=== PATIENT | male | born 1965 ===

== ENCOUNTER → 2018-02-20 10:06 | Day surgery (SDC) | payer BC, OTHER ==
[~2018-02-20 10:06] MED LIST: Buffered Lidocaine 0.9% SYRIN* 5 ML/SYR SYRINGE INTRADERM ONE; Bupivacaine 0.25% SDV PF* 10 ML VIAL INJ ONE; Lactated Ringers 1000 ML Bag* 1,000 ML IV SCH; Lidocaine 2% PF * 5 ML VIAL ONE; Midazolam* 1 MG/ML 2 ML VIAL (2 MG) ONE; Naloxone* 0.4 MG/ML 1 ML VIAL IV PRN; fentaNYL* 50 MCG/ML 2 ML VIAL (100 MCG VIAL) ONE
[2018-02-20 12:49] VITALS: BP 144/95
--- NOTE | 2018-02-20 18:49 | OP ---
DATE OF OPERATION: 02/20/18 - [facility] DATE OF : 69. SURGEON: Chris Hardin MD RECEIVABLE MANAGER: LEE Vang ANESTHESIOLOGIST: Dr. Correa. ANESTHESIA: Local MAC. PRE-OP DIAGNOSIS: Right carpal tunnel syndrome. POST-OP DIAGNOSIS: Right carpal tunnel syndrome. OPERATIVE PROCEDURE: Right open carpal tunnel release. INDICATIONS: Chao has had progressive carpal tunnel. We talked about risks and benefits. He wanted to proceed. ESTIMATED BLOOD LOSS: 2 mL. COMPLICATIONS: None. FINDINGS: See above and below. DESCRIPTION OF PROCEDURE: Chao was seen in the preoperative holding area. The correct side, site, and procedure were identified. We came back to the operating room where he got some anesthesia and then I infiltrated the operative area with 0.25% plain Marcaine. The arm was then prepped and draped in the usual fashion and a time-out was performed. The arm was exsanguinated with the Esmarch and the tourniquet inflated to 250 mmHg. We made a longitudinal 3 cm incision in the proximal palm in the typical location for an open carpal tunnel release. Dissection was carried down through the subcutaneous tissue and palmar fascia. The transverse carpal ligament was then released off the radial aspect of the hook of the hamate. The release was completed distally and then proximally I came and released the subcutaneous tissue and palmar fascia and this was retracted out of the way and then the remainder of the transverse carpal ligament and the distal antebrachial fascia was released with the tenotomy scissors under direct visualization. Once everything was looking good, I irrigated out the wound. The skin was closed with 4-0 nylon suture. Soft dressings were applied. He was then taken to the recovery room in stable condition. [id number] #: [id number] MTDD
== END | disposition home or self-care (01) ==
LOC: OR 10:06
PROVIDERS: ATTEND Orthopaedic Surgery Hand Surgery
DX: G56.01 Carpal tunnel syndrome, right upper limb (principal); Z68.30 Body mass index [BMI] 30.0-30.9, adult
CPT/HCPCS: J2250; J3010; J3490

== ENCOUNTER 2018-06-12 11:31 | Day surgery (SDC) | payer OTHER ==
[~2018-06-12 11:31] MED LIST changes: -Buffered Lidocaine 0.9% SYRIN* 5 ML/SYR SYRINGE INTRADERM ONE; +Buffered Lidocaine 1% SYRIN* 1 ML/SYRINGE INTRADERM ONE; -Bupivacaine 0.25% SDV PF* 10 ML VIAL INJ ONE; +Dexamethasone IV* 4 MG/ML 1 ML (4 MG) IV SLOW PU ONE; +Famotidine IV* 10 MG/ML 2 ML (20 mg) IV ONE; -Lidocaine 2% PF * 5 ML VIAL ONE; -Midazolam* 1 MG/ML 2 ML VIAL (2 MG) ONE; -Naloxone* 0.4 MG/ML 1 ML VIAL IV PRN; +Ondansetron INJ* 2 MG/ML VIAL IV ONE; +Scopolamine 1.5 mg* PATCH TRANSDERM ONE; -fentaNYL* 50 MCG/ML 2 ML VIAL (100 MCG VIAL) ONE
[2018-06-12] MEDS ORDERED: Dexamethasone IV* 4 MG/ML 1 ML (4 MG) ONE (12:46)
[2018-06-12] MEDS ORDERED: Famotidine IV* 10 MG/ML 2 ML (20 mg) ONE (12:47)
[2018-06-12] MEDS ORDERED: Buffered Lidocaine 1% SYRIN* 1 ML/SYRINGE INTRADERM ONE (12:47)
[2018-06-12] MEDS ORDERED: Scopolamine 1.5 mg* PATCH ONE (12:47)
[2018-06-12] MEDS ORDERED: Bupivacaine 0.25% SDV PF* 10 ML VIAL INJ ONE (14:07)
[2018-06-12] MEDS ORDERED: Glycopyrrolate IV* 0.2 MG/ML 1 ML VIAL ONE (14:45)
[2018-06-12] MEDS ORDERED: Propofol* 10 MG/ML 20 ML BTL ONE (14:45)
[2018-06-12] MEDS ORDERED: Ondansetron INJ* 2 MG/ML VIAL ONE (14:45)
[2018-06-12] MEDS ORDERED: Naloxone* 0.4 MG/ML 1 ML VIAL IV PRN (15:19)
[2018-06-12] MEDS ORDERED: DiMENhydriNATE IV* 50 MG/ML VIAL IV PUSH PRN (15:19)
[2018-06-12 16:29] VITALS: BP 142/98
--- NOTE | 2018-06-13 00:18 | OP ---
DATE OF OPERATION: 06/12/18 - [facility] DATE OF : 69 SURGEON: Chris Hardin MD AUTOMOTIVE MANAGER: None. ANESTHESIOLOGIST: Dr. Correa. ANESTHESIA: General. PRE-OP DIAGNOSIS: Left carpal tunnel syndrome. POST-OP DIAGNOSIS: Left carpal tunnel syndrome. OPERATIVE PROCEDURE: Left endoscopic carpal tunnel release. INDICATIONS: Chao is 53 years old. He has done very well with the right carpal tunnel release. We talked about risks and benefits, he want to do left carpal tunnel endoscopically, so he can get back to work little bit quicker. He understands risks and benefits including the risk of nerve injury. He wants to proceed. ESTIMATED BLOOD LOSS: 2 mL. COMPLICATIONS: None. FINDINGS: See above and below. DESCRIPTION OF PROCEDURE: Chao was seen in the preoperative holding area. The correct site, side, and procedure were identified. We came back to the operating room, where the arm was prepped and draped in the usual fashion. Time -out was performed. The arm was exsanguinated with the Esmarch and the tourniquet was inflated to 250 mmHg. I began by making a 1 cm incision just proximal to the wrist flexion crease and distal ulnar to the palmaris longus tendon. Dissection was carried down and the distal antebrachial fascia was opened and retracted out of the way with a 2 prong narrow skin hook. I then used the synovial stripper followed by the dilators then the MicroAire endoscopic carpal tunnel system was introduced under direct visualization. The transverse carpal ligament was released from distal to the proximal. Once I had completed the distal release, I confirmed that under direct visualization and then I went ahead and released the distal antebrachial fascia proximally. At this point, everything was looking good. We irrigated out the wounds. The skin was closed with a 4-0 Monocryl suture and Steri-Strips. Marcaine 0.25% was infiltrated all around the operative area. Dressings were applied, tourniquet was deflated, and he was taken to the recovery room in stable condition. [id number] #: [id number] MTDD
== END 2018-06-12 16:24 | disposition home or self-care (01) ==
LOC: OR 11:31
PROVIDERS: ATTEND Orthopaedic Surgery Hand Surgery
DX: G56.02 Carpal tunnel syndrome, left upper limb (principal); Z68.30 Body mass index [BMI] 30.0-30.9, adult
CPT/HCPCS: A9270-GY; J1100; J2405; J2704; J3490